=== PATIENT | female | born 1990 | race Caucasian/White ===

== ENCOUNTER 2017-12-31 21:32 | Emergency (ER) | payer OTHER ==
[2017-12-31 21:55] VITALS: Ht 182.9 cm
[2018-01-01 01:12] VITALS: BP 128/87
== END 2018-01-01 01:12 | disposition home or self-care (01) ==
LOC: ED 21:32
DX: S01.81XA Laceration without foreign body of other part of head, initial encounter (principal); V00.121A Fall from non-in-line roller-skates, initial encounter; Y93.I1 Activity, roller coaster riding; Y92.331 Roller skating rink as the place of occurrence of the external cause; Y99.8 Other external cause status
CPT/HCPCS: 90715